=== PATIENT | female | born 1990 | race Hispanic/Latino ===

== ENCOUNTER 2017-08-28 07:38 | Emergency (ER) | payer OTHER, SELFPAY ==
--- NOTE | 2017-08-28 09:08 | RAD ---
CHEST 2 VIEWS: Date: 08/28/17 HISTORY: Cough. COMPARISON: Chest 2 views dated 09/02/13. FINDINGS: The lungs are clear. No pneumothorax or effusion. Cardiac silhouette and mediastinal contours within normal limits. No acute osseous abnormality. IMPRESSION: No acute intrathoracic abnormality. POS: [facility]
== END 2017-08-28 09:15 | disposition home or self-care (01) ==
LOC: ERS 07:38
DX: R09.81 Nasal congestion (principal); R05 Cough
CPT/HCPCS: 71046

== ENCOUNTER 2017-10-22 18:18 | Emergency (ER) | payer SELFPAY ==
[2017-10-22] MEDS ORDERED: Acetaminophen 500 MG TAB ONE (23:16)
[2017-10-23] MEDS ORDERED: Ibuprofen 800 MG TAB ONE (00:27)
== END 2017-10-23 00:59 | disposition home or self-care (01) ==
LOC: ERS 18:18
DX: B34.9 Viral infection, unspecified (principal)
CPT/HCPCS: 87081; 87430; 99283

== ENCOUNTER 2017-11-15 16:56 | Emergency (ER) | payer SELFPAY ==
--- NOTE | 2017-11-15 17:57 | RAD ---
CHEST TWO VIEWS: 11/15/17 HISTORY: Cough. COMPARISON: 08/28/17. FINDINGS: The cardiac silhouette and pulmonary vasculature are unremarkable. Mediastinum is midline. There is n o confluent air space consolidation, pneumothorax or pleural fluid evident. IMPRESSION: No active cardiopulmonary abnormalities are demonstrated. POS: [facility]
== END 2017-11-15 17:44 | disposition home or self-care (01) ==
LOC: ERS 16:56
DX: I10 Essential (primary) hypertension; J20.9 Acute bronchitis, unspecified
CPT/HCPCS: 71046

== ENCOUNTER 2018-03-13 02:25 | Emergency (ER) | payer SELFPAY ==
[2018-03-13] MEDS ORDERED: Ketorolac Tromethamine 60 MG/2 ML VIAL ONE (05:14)
== END 2018-03-13 05:46 | disposition home or self-care (01) ==
LOC: ERS 02:25
DX: S39.011A Strain of muscle, fascia and tendon of abdomen, initial encounter (principal); I10 Essential (primary) hypertension; X58.XXXA Exposure to other specified factors, initial encounter
CPT/HCPCS: 96372; J1885

== ENCOUNTER 2018-05-11 10:35 | Emergency (ER) | payer SELFPAY ==
[2018-05-11 12:47] LABS: Bilirubin Negative (Negative); Blood, Urine Large (Negative); Clarity CLOUDY (Clear); Glucose, Urine (Dipstick) Negative (Negative); Leukocyte Trace (Negative); Nitrite Negative (Negative); Protein, Urine (Dipstick) Trace mg/dL (Neg-Trace)
[2018-05-11 12:48] LABS: Pregnancy Test - Urine (BHCG) Negative (Negative); Pregu Control Background? CLEAR/WHITE (CLR/WHITE); Pregu Control Bar Appear? YES (CONTROL BAR)
[2018-05-11 12:51] LABS: Bacteria/HPF None Seen HPF (None Seen); Hyaline Casts/LPF 0-3 HYALINE CAST LPF (0-3 Hyaline); Pathc Cast-AUWi Flag 0.29 (0-2.49); RBC/HPF GREATER THAN 50-TNTC HPF (0-3); Squamous Epithelial 0-3 HPF (0-3); WBC/HPF 0-3 HPF (0-3)
[2018-05-11 13:14] LABS: #Basophils 0.1 thou/uL (0.0-0.2); #Eosinphils 0.3 thou/uL (0.0-0.7); #Lymphocytes 3.1 thou/uL (1.20-3.40); #Monocytes 0.6 thou/uL (0.11-0.59); #Neutrophils 5.4 thou/uL (1.40-6.50); %Basophils 0.6 % (0.0-1.0); %Eosinophils 3.1 % (0.0-10.0); %Monocytes 6.5 % (0.0-10.0); %Neutrophils 56.8 % (42.0-75.0); Hemoglobin 12.3 g/dL (12.0-16.0); Mean Corpuscular Volume 84.4 fL (78.0-98.0); Mean Platelet Volume 10.2 fL (7.4-10.4); Platelet Count 242 thou/uL (130-400); RBC Distribution Width 12.3 % (11.5-14.5); Red Blood Cell (RBC) Count 4.57 mill/uL (4.20-5.40); White Blood Cell (WBC) Count 9.5 thou/uL (4.8-10.8)
== END 2018-05-11 14:45 | disposition home or self-care (01) ==
LOC: ERS 10:35
DX: N92.0 Excessive and frequent menstruation with regular cycle (principal); I10 Essential (primary) hypertension
CPT/HCPCS: 36415; 81003; 81015; 81025; 85025; 99284

== ENCOUNTER 2018-10-02 12:02 | Emergency (ER) | payer SELFPAY | END 2018-10-02 13:36 | disposition home or self-care (01) | LOC: ERS 12:02 | DX: J01.90 Acute sinusitis, unspecified (principal); I10 Essential (primary) hypertension | CPT/HCPCS: 87804; 99283 ==

== ENCOUNTER 2018-10-14 21:38 | Emergency (ER) | payer SELFPAY ==
[2018-10-14] MEDS ORDERED: Ibuprofen 800 MG TAB ONE (22:00)
== END 2018-10-14 22:47 | disposition home or self-care (01) ==
LOC: ERS 21:38
DX: J11.1 Influenza due to unidentified influenza virus with other respiratory manifestations (principal)
CPT/HCPCS: 87804; 99283

== ENCOUNTER 2018-10-21 14:45 | Emergency (ER) | payer SELFPAY ==
[2018-10-21] MEDS ORDERED: Acetaminophen 500 MG TAB ONE (15:36)
== END 2018-10-21 15:39 | disposition home or self-care (01) ==
LOC: ERS 14:45
DX: H69.92 Unspecified Eustachian tube disorder, left ear (principal)
CPT/HCPCS: 99282

== ENCOUNTER 2019-02-07 16:27 | Emergency (ER) | payer SELFPAY ==
[2019-02-07] MEDS ORDERED: Ketorolac Tromethamine 60 MG/2 ML VIAL ONE (17:53)
== END 2019-02-07 18:18 | disposition home or self-care (01) ==
LOC: ERS 16:27
DX: M79.651 Pain in right thigh (principal)
CPT/HCPCS: 96372; J1885

== ENCOUNTER 2019-04-12 12:09 | Emergency (ER) | payer MEDICAID, SELFPAY ==
[2019-04-12] MEDS ORDERED: Fluorescein Opthalmic Strip ONE (14:20)
[2019-04-12] MEDS ORDERED: Proparacaine 0.5% Opth 15 ML BOT ONE (14:20)
== END 2019-04-12 15:05 | disposition home or self-care (01) ==
LOC: ERS 12:09
DX: H53.9 Unspecified visual disturbance (principal)

== ENCOUNTER 2019-04-13 19:55 | Observation (INO) | payer MEDICAID, SELFPAY ==
--- NOTE | 2019-04-13 21:24 | CT ---
CT head noncontrast HISTORY: Visual abnormality. Headache. FINDINGS: There is no evidence of acute intracranial hemorrhage or infarct. The ventricles appear nor mal in size, shape and position. There is no mass effect or shift of midline structures. Visualized paranasal sinuses remain well-aerated. IMPRESSION: No acute intracranial abnormalities are demonstrated.
[2019-04-13 21:30] LABS: #Basophils 0.1 thou/uL (0.0-0.2); #Eosinphils 0.3 thou/uL (0.0-0.7); #Lymphocytes 3.4 thou/uL (1.20-3.40); #Monocytes 0.5 thou/uL (0.11-0.59); %Basophils 0.7 % (0.0-1.0); %Eosinophils 2.9 % (0.0-10.0); %Lymphocytes 36.6 % (21.0-51.0); %Monocytes 5.4 % (0.0-10.0); %Neutrophils 54.5 % (42.0-75.0); Hemoglobin 12.7 g/dL (12.0-16.0); Mean Corpuscular HGB CONC 32.9 g/dL (32.0-36.0); Mean Corpuscular Volume 85.2 fL (78.0-98.0); Mean Platelet Volume 9.7 fL (7.4-10.4); Platelet Count 237 thou/uL (130-400); RBC Distribution Width 12.2 % (11.5-14.5); Red Blood Cell (RBC) Count 4.52 mill/uL (4.20-5.40); White Blood Cell (WBC) Count 9.2 thou/uL (4.8-10.8)
[2019-04-13 21:41] LABS: BHCG - Serum Negative (NEGATIVE); Pregs Control Background? CLEAR/WHITE (CLR/WHITE); Pregs Control Bar Appear? YES (CONTROL BAR)
[2019-04-13 21:50] LABS: ALT (SGPT) 13 U/L (8-55); AST (SGOT) 11 U/L (5-34); Albumin 3.9 g/dL (3.5-5.0); Alkaline Phosphatase 94 U/L (40-150); Anion Gap 11 mmol/L (10-20); BUN (Urea Nitrogen) 9 mg/dL (7.0-18.7); Bilirubin, Total 0.2 mg/dL (0.2-1.2); Calc. Creatinine Clearance 0 mL/min (70-130); Calcium 9.3 mg/dL (7.8-10.44); Carbon Dioxide 27 mmol/L (22-29); Chloride 105 mmol/L (98-107); Estimated GFR-MDRD Greater than 90; Globulin 3.6 g/dL (2.4-3.5); Glucose 106 mg/dL (70-105); Potassium 3.7 mmol/L (3.5-5.1); Protein, Total 7.5 g/dL (6.0-8.3); Sodium 139 mmol/L (136-145)
--- NOTE | 2019-04-13 23:45 | PDOC.FPRHP ---
- History of Present Illness Chief Complaint: blindness in right eye History of Present Illness: Pt states that on 04/12 she suddenly lost vision in the temporal region of her right eye around 1700. She states the vision first decreased to a "static television," then to completely black. Now she has a black field of vision on the far right and dark spots creeping over. Pt denies any weakness, LOC, dizziness, slurred speech or numbness. Pt was seen in the ED 04/11, and discharged to follow up with optho. CT imaging normal. Pt has been seen by Dr. Thompson, who sent her to a retina specialist in [place] on 04/13. The Retina specialist did not find a deficit whic could cause her sudden blindness, only a small hole in the retina. - Allergies/Adverse Reactions Allergies Allergy/AdvReac Type Severity Reaction Status Date / Time No Known Drug Allergies Allergy Verified 04/14/19 07:51 - Home Medications Medication Instructions Recorded Confirmed Type Acetaminophen [Tylenol Extra 2 tab PO PRN PRN 11/26/16 04/14/19 History Strength] - History PMHx: gestational DM, gestation HTN PSHx: none FHx: mother: HTN, DM, glaucoma, Father: [place] @ 53 Social: Denies drug, etoh, or tobacco use. - Review of Systems General: denies: fever/chills, fatigue Eyes: reports: vision changes (see HPI). denies: eye pain ENT: denies: nasal congestion Respiratory: denies: cough, congestion, shortness of breath Cardiovascular: denies: chest pain, palpitation, edema Gastrointestinal: denies: nausea, vomiting, diarrhea, constipation, abdominal pain Genitourinary: denies: incontinence, dysuria, polyuria Skin: denies: rashes, lesions Musculoskeletal: denies: pain, tenderness, stiffness, swelling, arthritis/ arthralgias Neurological: denies: numbness, syncope, seizure, weakness - Vital signs BP: 124/85 HR: 92 RR: 18 Tmax: 98.0 Pox: 99% on RA Wt: 117.9 KG - Physical Exam Constitutional: NAD, awake, alert and oriented, well developed HEENT: normocephalic and atraumatic, PERRLA, EOMI, conjunctiva clear, no scleral icterus, grossly normal hearing, MMM, oropharynx clear, good dention -HEENT: No vision reported past the patient's 1 O'clock through right peripheral vision. No deficits noted on left eye. Neck: supple, FROM, trachea midline, no LAD, no JVD Chest: no-tender to palpation, no lesions Heart: RRR, normal S1/S2, no murmurs/rubs/gallops, pulses present, no edema Lungs: CTAB, no respiratory distress, good air movement, no rales/rhonchi, no wheezing, no retractions Abdomen: soft, non-tender, bowel sounds present, no masses/distention, no hernias Musculoskeletal: normal structure, normal tone, ROM grossly normal Neurological: CN II-XII intact, normal sensation, DTRs 2+, other (visual field deficit on right 1 o'clock through to right peripheral vision. Asno-ds-galx intact.) Skin: no rash/lesions, good turgor, capillary refill <2 seconds, no jaundice Heme/Lymphatic: no unusual bruising or bleeding, no purpura, no petechia, no LAD Psychiatric: normal mood and affect, good judgment and insight, intact recent and remote memory FMR H&P: Results - Labs Result Diagrams: 04/13/19 21:22 04/13/19 21:22 Lab results: WBC 9.2 thou/uL (4.8-10.8) 04/13/19 21:22 Hgb 12.7 g/dL (12.0-16.0) 04/13/19 21:22 Hct 38.5 % (36.0-47.0) 04/13/19 21:22 MCV 85.2 fL (78.0-98.0) 04/13/19 21:22 Plt Count 237 thou/uL (130-400) 04/13/19 21:22 Neutrophils % 54.5 % (42.0-75.0) 04/13/19 21:22 Sodium 139 mmol/L (136-145) 04/13/19 21:22 Potassium 3.7 mmol/L (3.5-5.1) 04/13/19 21:22 Chloride 105 mmol/L (98-107) 04/13/19 21:22 Carbon Dioxide 27 mmol/L (22-29) 04/13/19 21:22 BUN 9 mg/dL (7.0-18.7) 04/13/19 21:22 Creatinine 0.60 mg/dL (0.6-1.1) 04/13/19 21:22 Glucose 106 mg/dL (70-105) H 04/13/19 21:22 Calcium 9.3 mg/dL (7.8-10.44) 04/13/19 21:22 Total Bilirubin 0.2 mg/dL (0.2-1.2) 04/13/19 21:22 AST 11 U/L (5-34) 04/13/19 21:22 ALT 13 U/L (8-55) 04/13/19 21:22 Alkaline Phosphatase 94 U/L (40-150) 04/13/19 21:22 Serum Total Protein 7.5 g/dL (6.0-8.3) 04/13/19 21:22 Albumin 3.9 g/dL (3.5-5.0) 04/13/19 21:22 - Radiology Interpretation CT scan - head Status: report reviewed by me (CT head negative) FMR H&P: A/P - Problem List (1) Visual field loss Current Visit: Yes Status: Acute Code(s): H53.40 - UNSPECIFIED VISUAL FIELD DEFECTS (2) Tension headache Current Visit: Yes Status: Acute Code(s): G44.209 - TENSION-TYPE HEADACHE, UNSPECIFIED, NOT INTRACTABLE - Plan 28 y/o female admitted to stroke observation for right eye temporal blindness, to rule out CVA. 1. 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 Thompson saw pt 04/13 @ 0800, sent her to retina specialist in [place] for suspected retinal detachment. Retinal Specialist did not find any detachment, but a small retinal hole. Specialist said this was not the cause of the sudden onset blindness. - MRI brain scheduled, with and without contrast, to rule out acute CVA. - Ddx is broad, including but not limited to acute CVA, space occupying lesion, Multiple Sclerosis, optic neuritis. 2. Headache, most likely tension headache - band distribution, present over the past X1 month, about 3 days a week. 3. 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 4. Hx of gestational HTN and gestational DM Full Code Diet: Regular diet DVT ppx: SCD's Disposition/LOS: Pt stable, admit to stroke observation for less than 2 midnights FMR H&P: Upper Level - Pertinent history 28 yo female presents for evaluation of right visual field loss. Patient reports presenting to ED and then being directed to ophthalmology. She was then sent to retina specialists and told it was not a retina disorder. She presented back to ED for further evaluation due to persistent visual loss. Please see international affairs vice president note above for further information. General: Female appears stated age, NAD HEENT: Moist mucous membranes. Total visual loss to lateral right upper and lower visual hernandez. EOMI intact. PERRLA CV: Regular rate and regular rhythm, no murmurs Respiratory: CTA-bilaterally Abdomen: Soft, nontender, no distention Normoactive BS Extremities: Moving all four symmetrically, no edema Neuro: No focal deficits, CN 2-12 intact, no cerebellar signs. Negative Rhomberg and negative pronator drift sign Psych: A&O x3. - Plan Date/Time: 04/13/19 5939 I, Golden Valerio MD, have evaluated this patient and agree with findings/ plan as outlined by international affairs vice president resident. Pertinent changes/additions are listed here. 1. Visual Loss - Unclear etiology - Retina and intrinsic eye pathology ruled out by Ophthalmology - MRI ordered to rule out intracranial/central cause 2. Headaches - Possible atypical migraine - PRN headache control PCP: CC CODE STATUS: FULL CODE Disposition: Will admit for MRI imaging and further evaluation. Addendum - Attending - Attending Attestation Date/Time: 04/14/19 4506 I personally evaluated the patient and discussed the management with Dr. Vazquez/ Teodoro. I agree with the History, Examination, Assessment and Plan documented above with any addition or exceptions noted below. Patient here with R temporal visual field defect in the R eye only. Reports this occurred several days ago. Was seen by retinal specialist who ruled out retinal cause of her symptoms. Denies pain, L sided loss, blurring. Denies other neuro deficits. She does complain of intermittent headaches. Exam consistent with R eye temporal visual field loss. She will be placed in observation status, obtain MRI to evaluate for cranial pathology or optic nerve pathology. Based on field deficit and unilateral nature, suspect lesion in optic nerve between chiasm and retina of the R eye. Further mgmt per MRI results. Unless inflammatory in nature, this has likely been going on long enough that her vision loss may be permanent.
[2019-04-14] MEDS ORDERED: Acetaminophen 325 MG TAB PO PRN (00:49)
[2019-04-14 06:18] LABS: Phosphorus 3.6 mg/dL (2.3-4.7)
[2019-04-14 06:19] LABS: Cardiac Risk 3.8 (Less than 4.5); Magnesium 1.9 mg/dL (1.6-2.6)
[2019-04-14 07:55] VITALS: BMI 46.9
--- NOTE | 2019-04-14 09:39 | MRI ---
MRI BRAIN WITHOUT CONTRAST: HISTORY: Visual abnormality. Headache. Visual deficit. CORRELATION: The previous day's CT scan. FINDINGS: No restricted diffusion is seen. No evidence of infarct, hemorrhage, midline shift, or abnormal extr aaxial fluid collections is seen. The ventricular size is normal, and the basilar cisterns are paten t. No tonsillar herniation is seen. There is mucosal disease in the paranasal sinuses. Occasional tiny foci of T2 prolongation is seen in the white matter. IMPRESSION: No evidence of acute intracranial process. POS: [facility]
[2019-04-14 11:56] VITALS: BP 141/78; TEMP 98.6
--- NOTE | 2019-04-15 11:42 | DIS ---
DATE OF ADMISSION: 04/13/2019 DATE OF DISCHARGE: 04/14/2019 ADMITTING ATTENDING: Wilbert Lay MD CONSULTS: None. IMAGING: Brain CT showed no acute intracranial abnormalities. Brain MRI showed no acute intracranial abnormalities or pathology associated with optic nerve. DISCHARGE MEDICATIONS: Tylenol 500 mg p.o. p.r.n. DISCHARGE DIAGNOSIS: Right temporal hemianopia. SECONDARY DIAGNOSES: 1. Headache. 2. History of Jackson's palsy. 3. History of gestational hypertension and diabetes. HISTORY OF PRESENT ILLNESS/HOSPITAL COURSE: This is a 28-year-old female, who presents for evaluation of right visual field loss. She reports that she had come to the emergency department and has been sent to Ophthalmology and then sent from Ophthalmology to a retina specialist. Retina specialist did not find disorder of the retina that was associated with her visual field loss, so she was sent back and admitted to our service for further evaluation. The patient was admitted to the floor and remained stable throughout. No changes to her visual field. MRI was obtained to rule out CVA and MS flare. Dr. Thompson, software engineer intern roll cutter was contacted and reported that he would see patient followup in his office. The patient was discharged home in stable condition. DISCHARGE INSTRUCTIONS: 1. Location: Home. 2. Diet: Regular. 3. Activity: As tolerated. 4. Followup: Followup with Dr. Thompson in the next 2 to 3 days. Job ID: [id number]
== END 2019-04-14 13:54 | disposition home or self-care (01) ==
LOC: ERS 19:55 → 2SE 23:00
PROVIDERS: ADMIT Student in an Organized Health Care Education/Training Program; ATTEND Student in an Organized Health Care Education/Training Program
DX: H53.47 Heteronymous bilateral field defects (principal); R51 Headache
CPT/HCPCS: 36415; 70450; 70551; 80053; 80061; 83735; 84100; 84443; 84484; 84703; 85025; 93005; G0378

== ENCOUNTER 2022-08-06 14:01 | Emergency (ER) | payer MEDICAID, OTHER ==
[~2022-08-06 14:01] MED LIST: Iopamidol-370 76% 500 ML 1 ML ONE
[2022-08-06] MEDS ORDERED: Ketorolac Tromethamine 30 MG/ML VIAL ONE (14:30)
[2022-08-06 15:57] LABS: Pregnancy Test - Urine (BHCG) Negative (Negative); Pregu Control Background? CLEAR/WHITE (CLR/WHITE); Pregu Control Bar Appear? YES (CONTROL BAR); Specific Gravity 1.022 (1.002-1.036)
== END 2022-08-06 18:06 | disposition home or self-care (01) ==
LOC: ERS 14:01
DX: L02.91 Cutaneous abscess, unspecified (principal); L03.213 Periorbital cellulitis; I10 Essential (primary) hypertension
CPT/HCPCS: 70487; 81025; 96374; J1885; Q9967